=== PATIENT | female | born 1975 | race American Indian/Alaskan Native ===

== ENCOUNTER 2018-11-05 10:20 | Outpatient (CLI) | payer BC ==
--- NOTE | 2018-11-05 15:46 | Mammography Report ---
BILATERAL DIGITAL SCREENING MAMMOGRAM WITH CAD:11/05/18 00:00:00 CLINICAL: Baseline screening. FINDINGS: The breasts are heterogeneously dense, which may obscure small masses. A left asymmetry with architectural distortion on the CC view requires additional imaging. No suspicious calcifications. The right breast is negative. IMPRESSION: Left asymmetry and architectural distortion requiring further workup. BI-RADS CATEGORY: 0 -- Needs Additional Imaging RECOMMENDATION: Recall for left ML, rolled CC and spot magnification CC views and left breast ultrasound if needed. ACR BI-RADS MAMMOGRAPHIC CODES: 0 = Needs additional imaging evaluation; 1 = Negative; 2 = Benign; 3 = Probably benign; 4 = Suspicious; 5 = Malignant; 6 = Known biopsy-proven malignancy COMMENT: 1. Dense breast tissue, i.e., adenosis, fibrocystic changes, etc., may obscure an underlying neoplasm. 2. Approximately 10% of cancers are not detected with mammography. 3. A negative mammography report should not delay biopsy if a clinically suspicious mass is present.
== END 2018-11-05 10:21 | disposition home or self-care (01) ==
LOC: SPVWC 10:20
PROVIDERS: ATTEND Obstetrics & Gynecology
DX: Z12.31 Encounter for screening mammogram for malignant neoplasm of breast (principal); K21.9 Gastro-esophageal reflux disease without esophagitis; E66.9 Obesity, unspecified; Z90.49 Acquired absence of other specified parts of digestive tract; Z87.891 Personal history of nicotine dependence
CPT/HCPCS: 77067

== ENCOUNTER 2018-11-18 15:15 | Outpatient (CLI) | payer BC ==
--- NOTE | 2018-11-18 16:22 | Mammography Report ---
LEFT DIGITAL DIAGNOSTIC MAMMOGRAM : 11/18/18 15:15:00 CLINICAL: Recalled for asymmetry. COMPARISON:11/05/18 screening FINDINGS: Additional mammographic views were performed and are negative. IMPRESSION: Negative Mammogram. BI-RADS CATEGORY: 1 -- Negative RECOMMENDATION: Routine mammographic screening in one year. ACR BI-RADS MAMMOGRAPHIC CODES: 0 = Needs additional imaging evaluation; 1 = Negative; 2 = Benign; 3 = Probably benign; 4 = Suspicious; 5 = Malignant; 6 = Known biopsy-proven malignancy COMMENT: 1. Dense breast tissue, i.e., adenosis, fibrocystic changes, etc., may obscure an underlying neoplasm. 2. Approximately 10% of cancers are not detected with mammography. 3. A negative mammography report should not delay biopsy if a clinically suspicious mass is present. COMMENT: Patient follow-up letters are generated via our [employer] application.
== END 2018-11-18 15:16 | disposition home or self-care (01) ==
LOC: SPVWC 15:15
PROVIDERS: ATTEND Obstetrics & Gynecology
DX: R92.8 Other abnormal and inconclusive findings on diagnostic imaging of breast (principal); K21.9 Gastro-esophageal reflux disease without esophagitis; E66.9 Obesity, unspecified; Z90.49 Acquired absence of other specified parts of digestive tract; Z87.891 Personal history of nicotine dependence